=== PATIENT | male | born 1980 | race African-American/Black ===

== ENCOUNTER 2020-02-21 03:00 | Emergency (ER) | payer OTHER ==
[~2020-02-21] VITALS: Ht 165.1 cm; Wt 81.6 kg
[2020-02-21 03:10] VITALS: BP 139/87
--- NOTE | 2020-02-21 03:11 | NUR ---
PT TAKEN TO TENT
--- NOTE | 2020-02-21 03:40 | NUR ---
PT TAKEN TO BED 8
[2020-02-21] MEDS ORDERED: NACL 0.9% 1,000 ML IV ONE ×2 (03:45→04:40)
--- NOTE | 2020-02-21 03:57 | NUR ---
LABS COLLECTED AND TAKEN TO LAB
--- NOTE | 2020-02-21 04:02 | NUR ---
PT TAKEN TO XRAY
[2020-02-21 04:15] LABS: BASOPHILS % (AUTO) 0.3 % (0.0-2.0); EOSINOPHILS % (AUTO) 0.1 % (0.0-4.0); HEMATOCRIT 53.7 % (36-52); HEMOGLOBIN 18.4 g/dL (12.0-18.0); LYMPHOCYTES # (AUTO) 1.1 K/uL (2.0-11.5); LYMPHOCYTES % (AUTO) 18.5 % (20.5-51.1); MEAN CORPUSCULAR HEMOGLOBIN 30 pg (27-31); MEAN CORPUSCULAR HGB CONC 34 g/dL (33-37); MONOCYTES # (AUTO) 0.8 K/uL (0.8-1.0); MONOCYTES % (AUTO) 12.7 % (1.7-9.3); NEUTROPHILS # (AUTO) 4.2 K/uL (1.8-7.7); NEUTROPHILS % (AUTO) 68.4 % (42.2-75.2); PLATELET COUNT (AUTO) 228 K/uL (140-450); RED BLOOD CELL COUNT(AUTO) 6.04 MIL/uL (4.20-6.10); RED CELL DISTRIBUTION WIDTH 12.6 % (11.6-13.7); WHITE BLOOD COUNT (AUTO) 6.1 K/uL (4.8-10.8)
[2020-02-21] MEDS ORDERED: IBUPROFEN 600 MG TAB PO ONE (04:15)
--- NOTE | 2020-02-21 04:20 | NUR ---
PT'S TEMP 100.4, MD NIELSEN AWARE NEW ORDER FOR MOTRIN PLAVED, PT MEDICATED ORDERED. PT ALSO C/O MD MORALES HOROWITZ AT BEDSIDE TO SEE PT
--- NOTE | 2020-02-21 04:29 | NUR ---
PT A+O*NPTE, W COUGH, ON O2 VIA MASK.
[2020-02-21 04:38] LABS: ALBUMIN 3.8 g/dL (3.4-5.0); ANION GAP 13.2 (8-16); CARBON DIOXIDE 29.3 mmol/L (21-32); CREATININE 1.3 mg/dL (0.6-1.3); POTASSIUM 3.5 mmol/L (3.5-5.1); TOTAL BILIRUBIN 0.4 mg/dL (0.0-1.0)
[2020-02-21] MEDS ORDERED: MORPHINE SULFATE 10 MG/ML VIAL IVP ONE (04:40)
[2020-02-21] MEDS ORDERED: ONDANSETRON 4 MG/2 ML VIAL IVP ONE (04:40)
--- NOTE | 2020-02-21 04:45 | NUR ---
PT TESTED POSITIVE FOR COVID 10 DAYS AGO, HOWEVER, HE IS STILL HAVING FEVERS, NAUSEA AND DIARRHEA. HE ALSO DEVELOPED ABD CRAMPING AND HASN'T BEEN ABLE TO EAT DUE TO LACK OF APPETITE AND ABD PAIN. PT FEELING GENERALIZED WEAKNESS AND HAS A NONPRODUCTIVE COUGH. DENIES FEELING SOB. PT PLACED ON BEDSIDE MONITOR AND IN GOWN. BED IN LOWEST POSITION AND SIDERAIL UP X 1. NKA NO HX
--- NOTE | 2020-02-21 05:33 | NUR ---
PT RETURN FROM CT
--- NOTE | 2020-02-21 07:45 | NUR ---
DR. NIELSEN AT BEDSIDE SPEAKING WITH PATIENT PRIOR TO DISCHARGE.
--- NOTE | 2020-02-21 07:47 | NUR ---
IV removed, catheter intact and site benign. Applied folded 4x4 gauze and tape to stop bleeding.
[2020-02-21 07:48] VITALS: BP 128/63
--- NOTE | 2020-02-21 07:48 | NUR ---
Patient discharged with v/s stable. Written and verbal after care instructions given and explained. Patient alert, oriented and verbalized understanding of instructions. Ambulatory with steady gait. All questions addressed prior to discharge. ID band removed. Patient advised to follow up with PMD. Rx of Codeine phosphate and Zofran ODT given. Patient educated on indication of medication including possible reaction and side effects. Opportunity to ask questions provided and answered.
== END 2020-02-21 07:48 | disposition home or self-care (01) ==
LOC: MED 03:00
DX: U07.1 COVID-19 (principal); R10.9 Unspecified abdominal pain; E86.0 Dehydration
CPT/HCPCS: 36415; 74022; 74176; 80053; 83690; 85025; 96361; 96374; 96375; 99285; G0480; J2270; J2405